=== PATIENT | female | born 1965 | race Caucasian/White ===

== ENCOUNTER 2017-11-26 11:00 | Emergency (ER) | payer BC, OTHER ==
[~2017-11-26] VITALS: Ht 149.9 cm; Wt 65.8 kg
[~2017-11-26 11:00] MED LIST: BENA20TA12 PO
[2017-11-26 11:21] VITALS: BP 160/101
--- NOTE | 2017-11-26 11:27 | NUR ---
BIB FAMILY C/O HIGH BLOOD PRESSURE WITH NAUSEA, DIZZINESS, RUBIO, CHEST PAIN/PRESSURE RADIATING TO THE BACK X 4DAYS. HX; HTN. SKIN IS PINK/WARM/DRY; AAOX4 WITH EVEN AND STEADY GAIT; LUNGS CLEAR BL; HR EVEN AND REGULAR; PT DENIES ANY FEVER, SOB, OR COUGH AT THIS TIME; PATIENT STATES PAIN OF 10/10 AT THIS TIME; VSS; PATIENT POSITIONED FOR COMFORT; HOB ELEVATED; BEDRAILS UP X2; BED DOWN. ER MD MADE AWARE OF PT STATUS.
--- NOTE | 2017-11-26 11:36 | NUR ---
REPORT GIVEN TO GREGG CN.
--- NOTE | 2017-11-26 12:21 | NUR ---
Patient being evaluated by DR JACOBS at bedside.
--- NOTE | 2017-11-26 13:21 | NUR ---
X RAY AT BEDSIDE
[2017-11-26 13:36] LABS: BASOPHILS # (AUTO) 0.1 K/uL (0.00-0.22); EOSINOPHILS # (AUTO) 0.1 K/uL (0-0.4); EOSINOPHILS % (AUTO) 2.1 % (0.0-4.0); HEMATOCRIT 39.6 % (36-48); HEMOGLOBIN 13.2 g/dL (12.0-16.0); LYMPHOCYTES # (AUTO) 2.5 K/uL (2.5-16.5); LYMPHOCYTES % (AUTO) 37.8 % (20.5-51.1); MEAN CORPUSCULAR HEMOGLOBIN 29 pg (27-31); MEAN CORPUSCULAR HGB CONC 34 g/dL (33-37); MEAN CORPUSCULAR VOLUME 87.9 fL (80-94); MONOCYTES # (AUTO) 0.4 K/uL (0.8-1.0); MONOCYTES % (AUTO) 5.5 % (1.7-9.3); NEUTROPHILS # (AUTO) 3.6 K/uL (1.8-7.7); NEUTROPHILS % (AUTO) 53.6 % (42.2-75.2); PLATELET COUNT (AUTO) 241 K/uL (140-450); RED CELL DISTRIBUTION WIDTH 13.6 % (11.6-13.7); WHITE BLOOD COUNT (AUTO) 6.7 K/uL (4.8-10.8)
[2017-11-26 14:02] LABS: PROTHROMBIN TIME 9.3 secs (10.8-13.4)
[2017-11-26 14:03] LABS: ALBUMIN 4.2 g/dL (3.4-5.0); ANION GAP 9.9 (8-16); CARBON DIOXIDE 29.4 mmol/L (21-32); CREATININE 0.8 mg/dL (0.6-1.3); POTASSIUM 3.3 mmol/L (3.5-5.1); TOTAL BILIRUBIN 0.3 mg/dL (0.0-1.0)
--- NOTE | 2017-11-26 15:23 | NUR ---
PT DENIES CP AT THIS TIME
[2017-11-26 17:42] VITALS: BP 136/85
--- NOTE | 2017-11-26 17:42 | NUR ---
Patient discharged with v/s stable. Written and verbal after care instructions given and explained. Patient verbalized understanding. Ambulatory with steady gait. All questions addressed prior to discharge. Advised to follow up with PMD.
== END 2017-11-26 17:42 | disposition home or self-care (01) ==
LOC: MED 11:00
DX: I10 Essential (primary) hypertension (principal); Z79.899 Other long term (current) drug therapy
CPT/HCPCS: 36415; 71045; 80053; 83880; 84484; 85025; 85610; 85730; 93005; 99285; Q0092; 81002; 81025

== ENCOUNTER 2021-09-17 10:55 | Emergency (ER) | payer BC, OTHER ==
[~2021-09-17] VITALS: Ht 149.9 cm; Wt 62.6 kg
[~2021-09-17 10:55] MED LIST changes: +BENA-26 PO; -BENA20TA12 PO
[2021-09-17 10:56] VITALS: BP 140/101
--- NOTE | 2021-09-17 11:01 | NUR ---
PT AMBOLATED TO BED 8.
--- NOTE | 2021-09-17 11:30 | NUR ---
56YO FEMALE PT C/O TIGHT 11/05 R UPPER ABDOMINAL PAIN WITH RADIATION TO BACK XTODAY. PT STATES INITIAL DISCOMFORT 2 WEEKS AGO THAT HAS INCREASED WITHIN THE LAST WEEK. PT REPORTS X1 VOMIT AND DIARRHEA YESTERDAY AND X1 VOMIT PRIOR TO ARRIVAL W/ CURRENT NAUSEA. DENIES BLOOD IN V/D. DENIES TAKING MEDICATION FOR PAIN. DENIES CHEST PAIN, SOB OR DYSURIA. PT UNABLE TO TOLERATE SOLID FOOD DUE NAUSEA. PT ABDOMEN NON TENDER OR DISTENDED, ACTIVE X4. PT AAOX4, RESPIRATIONS EVEN AND UNLABORED. BED AT LOWEST POSITION, BED RAIL UP X2. HX: DIABETES, HTN NKA
[2021-09-17 12:14] LABS: BASOPHILS # (AUTO) 0.1 K/uL (0.00-0.22); EOSINOPHILS # (AUTO) 0.1 K/uL (0-0.4); EOSINOPHILS % (AUTO) 1.2 % (0.0-4.0); HEMATOCRIT 38.7 % (36-48); LYMPHOCYTES % (AUTO) 31.1 % (20.5-51.1); MEAN CORPUSCULAR HEMOGLOBIN 30 pg (27-31); MEAN CORPUSCULAR HGB CONC 34 g/dL (33-37); MEAN CORPUSCULAR VOLUME 87.7 fL (80-94); MONOCYTES # (AUTO) 0.6 K/uL (0.8-1.0); MONOCYTES % (AUTO) 9.6 % (1.7-9.3); NEUTROPHILS # (AUTO) 3.8 K/uL (1.8-7.7); NEUTROPHILS % (AUTO) 57.1 % (42.2-75.2); PLATELET COUNT (AUTO) 224 K/uL (140-450); RED BLOOD CELL COUNT(AUTO) 4.41 MIL/uL (4.20-5.40); RED CELL DISTRIBUTION WIDTH 13.7 % (11.6-13.7); WHITE BLOOD COUNT (AUTO) 6.6 K/uL (4.8-10.8)
[2021-09-17 12:20] LABS: APPEARANCE,URINE CLEAR (CLEAR); BILIRUBIN,URINE NEGATIVE (NEGATIVE); BLOOD, URINE TRACE-I (NEGATIVE); COLOR,URINE YELLOW (YELLOW); LEUKOCYTE ESTERASE ,URINE NEGATIVE (NEGATIVE); NITRITE, URINE NEGATIVE (NEGATIVE); UGLUCOSE 3+ (NEGATIVE)
[2021-09-17] MEDS ORDERED: MORPHINE SULFATE 4 MG/ML SYR IVP ONE (12:20)
[2021-09-17] MEDS ORDERED: ONDANSETRON 4 MG/2 ML VIAL IVP ONE (12:20)
[2021-09-17] MEDS ORDERED: NACL 0.9% 1,000 ML IV ONE (12:20)
[2021-09-17 12:29] LABS: ALBUMIN 4.4 g/dL (3.4-5.0); ANION GAP 14.8 (8-16); CARBON DIOXIDE 26.9 mmol/L (21-32); CREATININE 2.1 mg/dL (0.6-1.3); POTASSIUM 3.7 mmol/L (3.5-5.1); TOTAL BILIRUBIN 0.3 mg/dL (0.0-1.0)
[2021-09-17 12:32] LABS: RBC,URINE 0-5 /HPF (0-5); WBC,URINE 0-5 /HPF (0-5)
[2021-09-17 12:33] LABS: OTHER CASTS, URINE None Seen /LPF (None Seen)
--- NOTE | 2021-09-17 12:36 | NUR ---
Ivone guerra in ED - 09/17/21 at 1256 by [facility] PT REPORTS NO RELIEF, HAS INCREASED PAIN AND NAUSEA. MADE AWARE
--- NOTE | 2021-09-17 12:56 | NUR ---
ULTRASOUND AT BEDSIDE
--- NOTE | 2021-09-17 13:07 | NUR ---
PT WHEELCHAIR ASSISTED TO CAR FOR
[2021-09-17] MEDS ORDERED: FAMO-90 PO (16:30)
[2021-09-17 16:55] VITALS: BP 115/69
--- NOTE | 2021-09-17 16:55 | NUR ---
IV removed, catheter intact and site benign. Applied folded 4x4 gauze and tape to stop bleeding.
--- NOTE | 2021-09-17 17:01 | NUR ---
Patient discharged with v/s stable. Written and verbal after care instructions FOR GASTRISITIS given and explained. Patient alert, oriented and verbalized understanding of instructions. Ambulatory with steady gait. All questions addressed prior to discharge. ID band removed. Patient advised to follow up with PMD. Rx of PEPCID AND TYLENOL given. Opportunity to ask questions provided and answered.
--- NOTE | 2021-09-17 17:02 | NUR ---
Chart checked and completed. The patient's care was reviewed and supervised by Madelyn Silva RN.
== END 2021-09-17 16:55 | disposition home or self-care (01) ==
LOC: MED 10:55
DX: R10.11 Right upper quadrant pain (principal); I10 Essential (primary) hypertension; E11.9 Type 2 diabetes mellitus without complications; Z79.4 Long term (current) use of insulin; Z79.899 Other long term (current) drug therapy
CPT/HCPCS: 36415; 76705; 80053; 81001; 81025; 83690; 85025; 96361; 96374; 96375; 99284; J2270; J2405; Q0092; J7030